=== PATIENT | male | born 1975 | race Caucasian/White ===

== ENCOUNTER 2023-05-06 07:47 | Day surgery (SDC) | payer BC ==
[~2023-05-06 07:47] MED LIST: Lactated Ringers 1,000 ML IV SCH; Sodium Chloride 0.9% 10 ML Syringe FLUSH PRN; Sodium Chloride 0.9% 10 ML Syringe FLUSH SCH
[2023-05-06] MEDS ORDERED: Propofol 200 MG/20 ML SDV ONE ×2 (08:43→09:08)
[2023-05-06] MEDS ORDERED: Ondansetron 4 MG/2 ML SDV ONE (09:15)
== END 2023-05-06 09:55 | disposition home or self-care (01) ==
LOC: JD.SDS 07:47
PROVIDERS: ATTEND Surgery
DX: Z12.11 Encounter for screening for malignant neoplasm of colon (principal); J45.909 Unspecified asthma, uncomplicated; Z79.899 Other long term (current) drug therapy; Z87.11 Personal history of peptic ulcer disease; Z88.0 Allergy status to penicillin; Z87.891 Personal history of nicotine dependence
CPT/HCPCS: 45378; J2405; J2704; J7120